=== PATIENT | male | born 1950 | race Caucasian/White ===

== ENCOUNTER 2021-04-02 08:47 | Day surgery (SDC) | payer MEDICARE, MEDICAID ==
[~2021-04-02] VITALS: Ht 172.7 cm; Wt 85.1 kg
[2021-04-02] VITALS (11 sets, daily range): BP systolic 123–197; BP diastolic 66–100
[2021-04-02] MEDS ORDERED: FLO0.4C PO (09:40)
[2021-04-02] MEDS ORDERED: CHOL500050 PO (09:40)
[2021-04-02] MEDS ORDERED: ASPI81TA50 PO (09:40)
[2021-04-02] MEDS ORDERED: diphenhydrAMINE 25mg capsule PO PRN (09:40)
[2021-04-02] MEDS ORDERED: LORazepam 0.5 MG tablet PO PRN (09:40)
[2021-04-02] MEDS ORDERED: TRIA60LO11 TOP (09:40)
[2021-04-02] MEDS ORDERED: dextrose ORAL solution 15 GM/59 ML bottle PO PRN ×2 (09:40)
[2021-04-02] MEDS ORDERED: DIPH-1055 PO (09:40)
[2021-04-02] MEDS ORDERED: MESSAGE TO PHARMACY PO ONE (09:40)
[2021-04-02] MEDS ORDERED: VILA40TA PO (09:40)
[2021-04-02] MEDS ORDERED: CLOP75TA34 PO (09:40)
[2021-04-02] MEDS ORDERED: insulin Lispro (HumaLOG) vial - multi-dose SQ SCH (09:40)
[2021-04-02] MEDS ORDERED: ALPR0.255 PO (09:40)
[2021-04-02] MEDS ORDERED: LOSA50TA64 PO (09:40)
[2021-04-02] MEDS ORDERED: AMLO-317 PO (09:40)
[2021-04-02] MEDS ORDERED: dextrose 50%-water 50ml dispensing syringe IV PRN ×2 (09:40)
[2021-04-02] MEDS ORDERED: nitroGLYCERIN 0.4mg SUBLingual tab SL PRN (09:40)
[2021-04-02] MEDS ORDERED: glucagon, human recombinant 1mg kit SUBCUT PRN (09:40)
[2021-04-02] MEDS ORDERED: normal saline 1,000 ML IV SCH (09:40)
[2021-04-02] MEDS ORDERED: DIPH25TA62 PO (09:42)
[2021-04-02] MEDS ORDERED: KEN0.1O TOP (09:42)
[2021-04-02 10:00] LABS: ALBUMIN 3.5 G/DL (3.4-5.0); ANION GAP 10 (8-16); BASOPHILS # (AUTO) 0.1 X10'3 (0-0.2); BASOPHILS % (AUTO) 1.2 % (0-1); BLOOD UREA NITROGEN 7 MG/DL (7-18); BUN/CREATININE RATIO 7.3 (5.4-32.0); CALCIUM 8.2 MG/DL (8.5-10.1); CHLORIDE 107 MMOL/L (99-107); CREATININE 0.96 MG/DL (0.60-1.10); EOSINOPHILS # (AUTO) 0.3 X10'3 (0-0.9); EOSINOPHILS % (AUTO) 3.7 % (0-6); GLUCOSE 178 MG/DL (70-104); HEMATOCRIT 37.4 % (42.0-52.0); HEMOGLOBIN 12.1 g/dl (14.0-17.9); LYMPHOCYTES # (AUTO) 1.6 X10'3 (1.1-4.8); LYMPHOCYTES % (AUTO) 22.2 % (21-51); MEAN CORPUSCULAR HEMOGLOBIN 27.5 PG (27.0-31.0); MEAN CORPUSCULAR HGB CONC 32.3 g/dL (33.0-36.5); MEAN CORPUSCULAR VOLUME 85.1 FL (78-98); MEAN PLATELET VOLUME 7.4 FL (7.4-10.4); MONOCYTES # (AUTO) 1.1 X10'3 (0-0.9); MONOCYTES % (AUTO) 15.3 % (2-12); NEUTROPHILS % (AUTO) 57.6 % (42-75); PLATELET COUNT 197 X10'3 (140-440); POTASSIUM 4.2 MMOL/L (3.5-5.1); SODIUM 140 MMOL/L (135-145); TOTAL CARBON DIOXIDE 23.1 MMOL/L (24-32); eGFR 77 ML/MIN
[2021-04-02 10:04] LABS: PARTIAL THROMBOPLASTIN TIME 24 SECONDS (22-32)
[2021-04-02 10:28] LABS: HEMOGLOBIN A1C 7.3 % (4.5-6.2)
[2021-04-02] MEDS ORDERED: iohexol 300mg/ml 100ml inj. ONE (10:41)
[2021-04-02] MEDS ORDERED: midazolam 1 mg/ML 2ml injection ONE ×2 (12:40→13:13)
[2021-04-02] MEDS ORDERED: LIDOcaine 1% (10mg/ml)w/preservative injection 20ml MDV ONE (12:40)
[2021-04-02] MEDS ORDERED: fentaNYL/PF 50MCG/1 ML 2ML syringe ONE (12:40)
[2021-04-02] MEDS ORDERED: iohexol 350MG/ML 100ml bottle IV ONE (12:41)
[2021-04-02] MEDS ORDERED: iohexol 350 MG/ML 50ML vial IV ONE ×2 (12:41→13:20)
[2021-04-02] MEDS ORDERED: nitroGLYCERIN-Tridil 50MG/D5W 250 ML IV ONE (13:09)
[2021-04-02] MEDS ORDERED: enalaprilat dihydrate 2.5mg/2ml vial IV ONE ×2 (13:10→13:11)
[2021-04-02] MEDS ORDERED: hydrALAZINE 20mg/ml inj. IV ONE (13:13)
[2021-04-02] MEDS ORDERED: HYDROcodone/acetaminophen 10/325mg tab PO PRN (14:55)
[2021-04-02] MEDS ORDERED: proCHLORperazine 10 MG/2 ml inj IV PRN (14:55)
[2021-04-02] MEDS ORDERED: OXAZEpam 15mg capsule PO PRN (14:55)
[2021-04-02] MEDS ORDERED: ondansetron/PF 4mg/2ml inj IV PRN (14:55)
[2021-04-02] MEDS ORDERED: HYDROcodone/acetaminophen 5mg/325mg tablet PO PRN (14:55)
[2021-04-02] MEDS ORDERED: insulin glargine (Lantus) pen - multi-dose SQ SCH (21:00)
== END 2021-04-02 19:50 | disposition home or self-care (01) ==
LOC: SSTAY O 08:47
PROVIDERS: ATTEND Internal Medicine Cardiovascular Disease
DX: R94.39 Abnormal result of other cardiovascular function study (principal); I25.10 Atherosclerotic heart disease of native coronary artery without angina pectoris; I10 Essential (primary) hypertension; E11.9 Type 2 diabetes mellitus without complications; N40.0 Benign prostatic hyperplasia without lower urinary tract symptoms; C34.12 Malignant neoplasm of upper lobe, left bronchus or lung; F41.9 Anxiety disorder, unspecified; F12.90 Cannabis use, unspecified, uncomplicated; F17.210 Nicotine dependence, cigarettes, uncomplicated; Z72.89 Other problems related to lifestyle; Z79.899 Other long term (current) drug therapy; Z88.0 Allergy status to penicillin; Z88.8 Allergy status to other drugs, medicaments and biological substances; Z79.01 Long term (current) use of anticoagulants
CPT/HCPCS: 70450; 71046; 80048; 82948; 83036; 85025; 85610; 85730; 93005; 93458; 99152; C1760; C1769; J0360; J1644; J2001; J2250; J3010; J7030; Q0163; Q9967; 70470; 99153; A4620; A6258; J1815; J3490

== ENCOUNTER 2021-06-30 08:50 | Outpatient (CLI) | payer MEDICARE, MEDICAID ==
[2021-06-19 12:51] LABS: BASOPHILS # (AUTO) 0.1 X10'3 (0-0.2); EOSINOPHILS # (AUTO) 0.3 X10'3 (0-0.9); EOSINOPHILS % (AUTO) 4.1 % (0-6); LYMPHOCYTES # (AUTO) 1.3 X10'3 (1.1-4.8); LYMPHOCYTES % (AUTO) 17.2 % (21-51); MEAN CORPUSCULAR HEMOGLOBIN 27.4 PG (27.0-31.0); MEAN CORPUSCULAR HGB CONC 32.6 g/dL (33.0-36.5); MEAN PLATELET VOLUME 7.9 FL (7.4-10.4); MONOCYTES # (AUTO) 1.1 X10'3 (0-0.9); MONOCYTES % (AUTO) 14.7 % (2-12); NEUTROPHILS # (AUTO) 4.7 X10'3 (1.8-7.7); PRE OP PLATELET COUNT 223 X10'3 (140-440); RED BLOOD COUNT 3.21 X10'6 (4.70-6.10); RED CELL DISTRIBUTION WIDTH 17.9 % (11.5-14.5)
[2021-06-19 12:53] LABS: PRE OP HEMOGLOBIN 8.8 g/dL (14.0-17.9)
[2021-06-19 13:02] LABS: PRE OP PROTIME 10.7 SECONDS (9.0-12.0)
[2021-06-19 13:03] LABS: ALBUMIN 3.2 G/DL (3.4-5.0); ALBUMIN/GLOBULIN RATIO 0.8 (1.1-1.5); ALKALINE PHOSPHATASE 72 IU/L (46-116); BLOOD UREA NITROGEN 12 MG/DL (7-18); BUN/CREATININE RATIO 11.4 (5.4-32.0); CALCIUM 8.5 MG/DL (8.5-10.1); CHLORIDE 110 MMOL/L (99-107); CREATININE 1.05 MG/DL (0.60-1.10); PRE OP ALT 18 U/L (30-65); PRE OP ANION GAP 10 (8-16); PRE OP AST 16 U/L (10-37); PRE OP BILIRUB, TOTAL 0.3 MG/DL (0.0-1.0); PRE OP GLUCOSE 145 MG/DL (70-104); PRE OP POTASSIUM 3.9 MMOL/L (3.4-5.1); PRE OP SODIUM 145 MMOL/L (135-145); TOTAL CARBON DIOXIDE 25.1 MMOL/L (24-32); TOTAL PROTEIN 7.3 G/DL (6.4-8.2); eGFR 69 ML/MIN
[2021-06-19 13:12] LABS: HEMOGLOBIN A1C 9.7 % (4.5-6.2)
[~2021-06-30] VITALS: Ht 172.7 cm; Wt 84.4 kg
[~2021-06-30 08:50] MED LIST: ALPR0.255 PO; AMLO-317 PO; ASPI81TA50 PO; CHOL500050 PO; DOCUMENT DATE & TIME OF BETA-BLOCKER PO ONE; FLO0.4C PO; HYDR-3686 PO; LOSA50TA64 PO; METO-395 PO; THIA100T70 PO; VILA40TA PO; albuterol 2.5 MG/3 ML nebule NEB PRN; clindamycin-Cleocin 900mg/D5W 50 ML IV ONE; famotidine 20mg tablet PO ONE; ringers solution, lacted 1,000 ML IV SCH
[2021-06-30] MEDS ORDERED: CLOP75TA34 PO (09:23)
[2021-06-30 10:00] LABS: BASOPHILS # (AUTO) 0.1 X10'3 (0-0.2); BASOPHILS % (AUTO) 1.2 % (0-1); EOSINOPHILS # (AUTO) 0.3 X10'3 (0-0.9); LYMPHOCYTES # (AUTO) 1.5 X10'3 (1.1-4.8); MEAN CORPUSCULAR HGB CONC 32.4 g/dL (33.0-36.5); MEAN CORPUSCULAR VOLUME 83.1 FL (78-98); MEAN PLATELET VOLUME 7.7 FL (7.4-10.4); MONOCYTES # (AUTO) 1.1 X10'3 (0-0.9); MONOCYTES % (AUTO) 13.9 % (2-12); NEUTROPHILS # (AUTO) 5.2 X10'3 (1.8-7.7); NEUTROPHILS % (AUTO) 62.9 % (42-75); PRE OP HEMATOCRIT 26.6 % (42.0-52.0); PRE OP PLATELET COUNT 214 X10'3 (140-440); RED CELL DISTRIBUTION WIDTH 17.5 % (11.5-14.5)
[2021-06-30 10:02] LABS: CLARITY,URINE CLEAR (Clear); COLOR,URINE YELLOW (Yellow); GLUCOSE, URINE 250 mg/dl (Neg); PROTEIN,URINE NEGATIVE (Neg); UA COLLECTION TYPE CLN CATCH MIDSTREAM
[2021-06-30 10:03] LABS: KETONES,URINE NEGATIVE (Neg); LEUKOCYTE ESTERASE ,URINE NEGATIVE (Neg); NITRITES, URINE NEGATIVE (Neg); OCCULT BLOOD,URINE NEGATIVE (Neg); UROBILINOGEN,URINE 0.2 E.U/dL (0.2-1.0)
[2021-06-30 10:11] LABS: ALBUMIN 3.1 G/DL (3.4-5.0); ALBUMIN/GLOBULIN RATIO 0.8 (1.1-1.5); ALKALINE PHOSPHATASE 73 IU/L (46-116); BLOOD UREA NITROGEN 10 MG/DL (7-18); CALCIUM 8.6 MG/DL (8.5-10.1); CHLORIDE 109 MMOL/L (99-107); PRE OP ALT 14 U/L (30-65); PRE OP ANION GAP 9 (8-16); PRE OP AST 12 U/L (10-37); PRE OP BILIRUB, TOTAL 0.3 MG/DL (0.0-1.0); PRE OP POTASSIUM 3.9 MMOL/L (3.4-5.1); PRE OP SODIUM 144 MMOL/L (135-145); TOTAL CARBON DIOXIDE 26.5 MMOL/L (24-32); TOTAL PROTEIN 7.2 G/DL (6.4-8.2); eGFR 73 ML/MIN
[2021-06-30 10:12] LABS: PRE OP HEMOGLOBIN 8.6 g/dL (14.0-17.9)
[2021-06-30 10:20] LABS: PRE OP GLUCOSE 208 MG/DL (70-104)
[2021-07-03] MEDS ORDERED: ringers solution, lacted 1,000 ML IV SCH (05:00)
[2021-07-03] MEDS ORDERED: clindamycin-Cleocin 900mg/D5W 50 ML IV ONE (05:30)
[2021-07-03] MEDS ORDERED: famotidine 20mg tablet PO ONE (05:30)
[2021-07-03] MEDS ORDERED: albuterol 2.5 MG/3 ML nebule NEB ONE (05:30)
[2021-07-03] MEDS ORDERED: DOCUMENT DATE & TIME OF BETA-BLOCKER PO ONE (05:30)
[2021-07-14] MEDS ORDERED: DIPH-1055 PO (10:10)
[2021-07-14] MEDS ORDERED: LINA5TAB4 PO (10:11)
[2021-07-14] MEDS ORDERED: GLIP10TA11 PO (10:15)
[2021-07-30] MEDS ORDERED: ALBU8HFA PO (13:13)
[2021-07-30] MEDS ORDERED: GABA-530 PO (13:13)
[2021-07-30] MEDS ORDERED: PANT40TA54 PO (13:13)
[2021-07-30] MEDS ORDERED: FURO-150 PO (13:13)
[2021-07-30] MEDS ORDERED: LACT1CAP26 PO (13:13)
[2021-07-30] MEDS ORDERED: METF-1203 PO (13:13)
== END 2021-06-30 23:59 | disposition home or self-care (01) ==
LOC: PRE-OP 08:50 → EDSTATUS 07-03 12:15
PROVIDERS: ATTEND Surgery
DX: Z01.812 Encounter for preprocedural laboratory examination (principal); U07.1 COVID-19; M25.78 Osteophyte, vertebrae
CPT/HCPCS: 36415; 71046; 80053; 81003; 83036; 85025; 85610; 85730; 86885; 86900; 86901; 87081; U0003; U0005; J3490; J7120

== ENCOUNTER 2021-11-05 12:12 | Emergency (ER) | payer MEDICARE, MEDICAID ==
[~2021-11-05] VITALS: Ht 172.7 cm; Wt 80.0 kg
[~2021-11-05 12:12] MED LIST changes: +CLOP75TA34 PO; +DIPH-1055 PO; -DOCUMENT DATE & TIME OF BETA-BLOCKER PO ONE; +FURO-150 PO; +GABA-530 PO; +LACT1CAP26 PO; +LINA5TAB4 PO; +PANT40TA54 PO; -albuterol 2.5 MG/3 ML nebule NEB PRN; -clindamycin-Cleocin 900mg/D5W 50 ML IV ONE; -famotidine 20mg tablet PO ONE; -ringers solution, lacted 1,000 ML IV SCH
[2021-11-05 12:35] VITALS: BP 128/55
[2021-11-05] MEDS ORDERED: HYDR-3972 PO (14:28)
== END 2021-11-05 14:49 | disposition home or self-care (01) ==
LOC: ER 12:13
DX: R07.89 Other chest pain (principal); I25.10 Atherosclerotic heart disease of native coronary artery without angina pectoris; F17.200 Nicotine dependence, unspecified, uncomplicated; Z98.890 Other specified postprocedural states; Z85.118 Personal history of other malignant neoplasm of bronchus and lung; Z88.0 Allergy status to penicillin; Z79.82 Long term (current) use of aspirin; Z79.899 Other long term (current) drug therapy
CPT/HCPCS: 71045; 99283

== ENCOUNTER 2021-11-16 14:46 | Inpatient (IN) | payer MEDICARE, MEDICAID ==
[~2021-11-16] VITALS: Ht 172.7 cm; Wt 80.9 kg
[~2021-11-16 14:46] MED LIST changes: +HYDR-3972 PO
--- NOTE | 2021-11-16 15:28 | NUR ---
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
[2021-11-16 15:53] LABS: ALANINE AMINOTRANSFERASE 17 U/L (12-78); ALBUMIN 3.4 G/DL (3.4-5.0); ALBUMIN/GLOBULIN RATIO 0.7 (1.1-1.5); ALKALINE PHOSPHATASE 115 IU/L (46-116); ANION GAP 11 (8-16); ASPARTATE AMINO TRANSFERASE 15 U/L (10-37); BILIRUBIN,TOTAL 0.4 MG/DL (0.1-1.0); BLOOD UREA NITROGEN 15 MG/DL (7-18); BUN/CREATININE RATIO 13.2 (5.4-32.0); CALCIUM 9.1 MG/DL (8.5-10.1); CHLORIDE 108 MMOL/L (99-107); CREATININE 1.14 MG/DL (0.60-1.10); GLUCOSE 137 MG/DL (70-104); POTASSIUM 4.5 MMOL/L (3.5-5.1); SODIUM 142 MMOL/L (135-145); TOTAL CARBON DIOXIDE 23.1 MMOL/L (24-32); TOTAL PROTEIN 8.3 G/DL (6.4-8.2); eGFR 63 ML/MIN
[2021-11-16 15:54] LABS: BASOPHILS # (AUTO) 0.1 X10'3 (0-0.2); BASOPHILS % (AUTO) 0.6 % (0-1); EOSINOPHILS % (AUTO) 0.1 % (0-6); HEMATOCRIT 22.2 % (42.0-52.0); HEMOGLOBIN 7.1 g/dl (14.0-17.9); LYMPHOCYTES # (AUTO) 0.9 X10'3 (1.1-4.8); LYMPHOCYTES % (AUTO) 7.4 % (21-51); MEAN CORPUSCULAR HEMOGLOBIN 24.9 PG (27.0-31.0); MEAN CORPUSCULAR HGB CONC 31.9 g/dL (33.0-36.5); MEAN CORPUSCULAR VOLUME 77.8 FL (78-98); MEAN PLATELET VOLUME 7.3 FL (7.4-10.4); MONOCYTES # (AUTO) 1.2 X10'3 (0-0.9); MONOCYTES % (AUTO) 9.4 % (2-12); NEUTROPHILS # (AUTO) 10.2 X10'3 (1.8-7.7); NEUTROPHILS % (AUTO) 82.5 % (42-75); PLATELET COUNT 295 X10'3 (140-440); RED BLOOD COUNT 2.85 X10'6 (4.70-6.10); RED CELL DISTRIBUTION WIDTH 18.3 % (11.5-14.5); WHITE BLOOD COUNT 12.4 X10'3 (4.5-11.0)
[2021-11-16] MEDS ORDERED: iohexol 350MG/ML 100ml bottle IV ONE (16:15)
[2021-11-16] MEDS ORDERED: heparin 10,000 units/1 ML INJ IV PRN ×2 (16:55→18:05)
[2021-11-16] MEDS ORDERED: furosemide 10 MG/1 ML 10ml inj IV ONE (16:55)
[2021-11-16] MEDS ORDERED: heparin 10,000 units/1 ML INJ IV ONE (16:55)
[2021-11-16] MEDS ORDERED: LORazepam 2 mg/ml vial IV ONE (17:10)
[2021-11-16 17:34] LABS: C-REACTIVE PROTEIN 5.46 MG/DL (0.0-0.5)
[2021-11-16] MEDS: heparin 25,000 UNIT/250ml bag 250 ML IV SCH (17:37)
[2021-11-16] MEDS ORDERED: potassium CL 10mEq/100ml bag 100 ML IV PRN (18:05)
[2021-11-16] MEDS ORDERED: morphine 2 MG/ML inj. syringe IV PRN (18:05)
[2021-11-16] MEDS ORDERED: dextrose 50%-water 50ml dispensing syringe IV PRN ×2 (18:05)
[2021-11-16] MEDS ORDERED: MESSAGE TO PHARMACY PO ONE (18:05)
[2021-11-16] MEDS ORDERED: ondansetron/PF 4mg/2ml inj IV PRN (18:05)
[2021-11-16] MEDS ORDERED: acetaminophen 325mg tablet PO PRN ×2 (18:05)
[2021-11-16] MEDS ORDERED: magnesium 2GM in 50ml NS 50 ML IV PRN (18:05)
[2021-11-16] MEDS ORDERED: insulin Lispro (HumaLOG) vial - multi-dose SQ SCH (18:05)
[2021-11-16] MEDS ORDERED: potassium Cl 20 mEq SR tablet PO PRN ×2 (18:05)
[2021-11-16] MEDS ORDERED: magnesium Cl slow-release 64mg tablet PO PRN (18:05)
[2021-11-16] MEDS ORDERED: glucagon, human recombinant 1mg kit SUBCUT PRN (18:05)
[2021-11-16] MEDS ORDERED: magnesium 4gm in 100ml NS 100 ML IV PRN (18:05)
[2021-11-16] MEDS ORDERED: DEXTROSE 15 GM of carb/4 tabs (each vial/BOTTLE has 4 tablets) PO PRN ×2 (18:05)
[2021-11-16] MEDS ORDERED: heparin 25,000 UNIT/250ml bag 250 ML IV SCH (18:05)
[2021-11-16] MEDS: nicotine 14mg patch - 24hr TD SCH (18:15)
[2021-11-16 18:48] LABS: HEMOGLOBIN A1C 6.6 % (4.5-6.2)
[2021-11-16] MEDS ORDERED: IPRA3AMP31 IH (19:24)
[2021-11-16] MEDS ORDERED: ALBU8.5H17 IH (19:24)
[2021-11-16] MEDS ORDERED: METF-436 PO (19:24)
[2021-11-16] MEDS ORDERED: GABA300C PO (19:24)
[2021-11-16] MEDS ORDERED: HYDR-3972 PO (19:27)
[2021-11-16] MEDS ORDERED: FURO-150 PO (19:27)
[2021-11-16] MEDS ORDERED: SUCR1TAB PO (19:57)
[2021-11-16] MEDS ORDERED: FLUT1DIS20 INH (19:57)
[2021-11-16] MEDS ORDERED: METO-539 PO (19:57)
[2021-11-16] MEDS ORDERED: LACT1CAP65 PO (19:57)
[2021-11-16] MEDS ORDERED: PANT-47 PO (19:57)
[2021-11-16] MEDS ORDERED: albuterol 2.5 MG/3 ML nebule NEB SCH (20:00)
[2021-11-16] MEDS: K and/or MAG REPLACEMENT MC SCH (20:00)
[2021-11-16 20:40] VITALS: BP 122/65
[2021-11-16] MEDS: insulin glargine (Lantus) pen - multi-dose SQ SCH (21:00)
--- NOTE | 2021-11-16 21:26 | NUR ---
RESPIRATORY PAGED FOR BREATHING TREATMENT.
[2021-11-16] MEDS: furosemide 40mg/4ml inj IV SCH (21:30)
[2021-11-16] MEDS: methylPREDNISolone sod succ 125mg/2ml vial IV SCH (21:31)
[2021-11-16] MEDS: HYDROcodone/acetaminophen 5mg/325mg tablet PO PRN (21:33)
[2021-11-16] MEDS ORDERED: albuterol 60 PUFF/8GM Inhaler IH PRN (21:50)
[2021-11-16 22:00] VITALS: BP 118/56
[2021-11-16] MEDS: albuterol 60 PUFF/8GM Inhaler IH SCH ×3 (22:02→23:40)
[2021-11-17 02:00] VITALS: BP 104/50
[2021-11-17] MEDS: albuterol 60 PUFF/8GM Inhaler IH SCH ×6 (03:39→23:35)
--- NOTE | 2021-11-17 06:44 | NUR ---
Problems reprioritized. Patient report given, questions answered & plan of care reviewed with CHARLENE WAGNER.
[2021-11-17 07:16] LABS: BASOPHILS % (AUTO) 0.2 % (0-1); EOSINOPHILS % (AUTO) 0 % (0-6); LYMPHOCYTES # (AUTO) 0.7 X10'3 (1.1-4.8); LYMPHOCYTES % (AUTO) 7.4 % (21-51); MEAN CORPUSCULAR HEMOGLOBIN 25.6 PG (27.0-31.0); MEAN CORPUSCULAR HGB CONC 32.4 g/dL (33.0-36.5); MEAN CORPUSCULAR VOLUME 78.9 FL (78-98); MEAN PLATELET VOLUME 7.5 FL (7.4-10.4); MONOCYTES # (AUTO) 0.2 X10'3 (0-0.9); MONOCYTES % (AUTO) 2.4 % (2-12); NEUTROPHILS # (AUTO) 8.8 X10'3 (1.8-7.7); PLATELET COUNT 274 X10'3 (140-440); RED CELL DISTRIBUTION WIDTH 18.6 % (11.5-14.5); WHITE BLOOD COUNT 9.8 X10'3 (4.5-11.0)
[2021-11-17 07:19] LABS: HEMATOCRIT 21.3 % (42.0-52.0); HEMOGLOBIN 6.9 g/dl (14.0-17.9)
--- NOTE | 2021-11-17 07:19 | NUR ---
critical result reported to primary RN
--- NOTE | 2021-11-17 07:23 | NUR ---
Page Sent to Dr. Mahajan regarding H&H promotional table spacer PAGER ID: [phone] MESSAGE: [phone]. Critical Hgb 6.9 Hct 21.3. Yesterday H&H 7.1 & 22.2. Kristen/ Faye [id number]
[2021-11-17 07:30] VITALS: BP 119/61
[2021-11-17 07:43] LABS: ALANINE AMINOTRANSFERASE 15 U/L (12-78); ALBUMIN/GLOBULIN RATIO 0.7 (1.1-1.5); ALKALINE PHOSPHATASE 99 IU/L (46-116); ANION GAP 12 (8-16); ASPARTATE AMINO TRANSFERASE 16 U/L (10-37); BILIRUBIN,TOTAL 0.3 MG/DL (0.1-1.0); BLOOD UREA NITROGEN 17 MG/DL (7-18); BUN/CREATININE RATIO 16.7 (5.4-32.0); CALCIUM 8.8 MG/DL (8.5-10.1); CHLORIDE 107 MMOL/L (99-107); CHOL/HDL RATIO 3.4 (0.00-4.99); CHOLESTEROL 154 MG/DL (0-200); CREATININE 1.02 MG/DL (0.60-1.10); GLUCOSE 167 MG/DL (70-104); HDL CHOLESTEROL 45 MG/DL (35-60); LDL CHOLESTEROL 92 MG/DL (50-100); POTASSIUM 3.8 MMOL/L (3.5-5.1); SODIUM 142 MMOL/L (135-145); TOTAL CARBON DIOXIDE 23.5 MMOL/L (24-32); TOTAL PROTEIN 7.5 G/DL (6.4-8.2); TRIGLYCERIDES 57 MG/DL (20-135); eGFR 72 ML/MIN
[2021-11-17] MEDS: levoFLOXACIN 500mg tablet PO SCH (08:26)
[2021-11-17] MEDS: methylPREDNISolone sod succ 125mg/2ml vial IV SCH ×2 (08:26→19:44)
[2021-11-17] MEDS: furosemide 40mg/4ml inj IV SCH ×2 (08:26→19:43)
[2021-11-17] MEDS: nicotine 14mg patch - 24hr TD SCH (08:26)
[2021-11-17] MEDS: azithromycin/NS 500mg/250ml 250 ML IV SCH (08:27)
[2021-11-17 08:36] LABS: ANISOCYTOSIS 2+; MICROCYTOSIS 1+; PLATELET ESTIMATE NORMAL
[2021-11-17 11:00] VITALS: BP 109/52
[2021-11-17 11:59] LABS: OCCULT BLOOD STOOL NEGATIVE (Neg)
[2021-11-17] MEDS: heparin 25,000 UNIT/250ml bag 250 ML IV SCH (15:00)
[2021-11-17 15:22] VITALS: BP 127/60
[2021-11-17 15:31] LABS: HEMOGLOBIN 7.1 g/dl (14.0-17.9); MEAN CORPUSCULAR HEMOGLOBIN 25.2 PG (27.0-31.0); MEAN CORPUSCULAR HGB CONC 32.2 g/dL (33.0-36.5); MEAN CORPUSCULAR VOLUME 78.5 FL (78-98); MEAN PLATELET VOLUME 7.5 FL (7.4-10.4); PLATELET COUNT 279 X10'3 (140-440); RED CELL DISTRIBUTION WIDTH 18.4 % (11.5-14.5); WHITE BLOOD COUNT 10.8 X10'3 (4.5-11.0)
--- NOTE | 2021-11-17 15:42 | NUR ---
RECEIVED CRITICAL LAB BY HALLE (LAB). HCT 22, HBG. 7.1, PRIMARY RN, KRISTY NOTIFIED
[2021-11-17 18:00] VITALS: BP 127/61
--- NOTE | 2021-11-17 18:30 | NUR ---
Night Charge nurse made aware of Dr. Mahajan's order to continue heparin order at 1500units/hr.
[2021-11-17] MEDS: K and/or MAG REPLACEMENT MC SCH (19:40)
[2021-11-17] MEDS: insulin glargine (Lantus) pen - multi-dose SQ SCH (21:00)
[2021-11-17 21:16] VITALS: BP 107/51
[2021-11-18] VITALS (14 sets, daily range): BP systolic 114–134; BP diastolic 53–68
[2021-11-18] MEDS: heparin 25,000 UNIT/250ml bag 250 ML IV SCH (02:15)
[2021-11-18 03:06] LABS: BASOPHILS % (AUTO) 0.1 % (0-1); EOSINOPHILS % (AUTO) 0 % (0-6); LYMPHOCYTES # (AUTO) 0.6 X10'3 (1.1-4.8); LYMPHOCYTES % (AUTO) 4.3 % (21-51); MEAN CORPUSCULAR HEMOGLOBIN 24.6 PG (27.0-31.0); MEAN CORPUSCULAR HGB CONC 31.6 g/dL (33.0-36.5); MEAN CORPUSCULAR VOLUME 77.9 FL (78-98); MEAN PLATELET VOLUME 7.3 FL (7.4-10.4); MONOCYTES # (AUTO) 0.9 X10'3 (0-0.9); MONOCYTES % (AUTO) 5.8 % (2-12); NEUTROPHILS # (AUTO) 13.4 X10'3 (1.8-7.7); NEUTROPHILS % (AUTO) 89.8 % (42-75); PLATELET COUNT 297 X10'3 (140-440); RED BLOOD COUNT 2.68 X10'6 (4.70-6.10); RED CELL DISTRIBUTION WIDTH 18.3 % (11.5-14.5); WHITE BLOOD COUNT 14.9 X10'3 (4.5-11.0)
--- NOTE | 2021-11-18 03:15 | NUR ---
Critical lab called to Dr. Amador. Order for type & screen and informed consent.
[2021-11-18 03:18] LABS: HEMATOCRIT 20.9 % (42.0-52.0); HEMOGLOBIN 6.6 g/dl (14.0-17.9)
[2021-11-18 03:21] LABS: ALANINE AMINOTRANSFERASE 19 U/L (12-78); ALBUMIN 3.1 G/DL (3.4-5.0); ALBUMIN/GLOBULIN RATIO 0.7 (1.1-1.5); ALKALINE PHOSPHATASE 96 IU/L (46-116); ANION GAP 13 (8-16); ASPARTATE AMINO TRANSFERASE 18 U/L (10-37); BILIRUBIN,TOTAL 0.3 MG/DL (0.1-1.0); BLOOD UREA NITROGEN 25 MG/DL (7-18); BUN/CREATININE RATIO 22.5 (5.4-32.0); CALCIUM 8.9 MG/DL (8.5-10.1); CHLORIDE 105 MMOL/L (99-107); CREATININE 1.11 MG/DL (0.60-1.10); GLUCOSE 154 MG/DL (70-104); POTASSIUM 3.5 MMOL/L (3.5-5.1); SODIUM 140 MMOL/L (135-145); TOTAL PROTEIN 7.4 G/DL (6.4-8.2); eGFR 65 ML/MIN
[2021-11-18] MEDS: albuterol 60 PUFF/8GM Inhaler IH SCH ×6 (03:41→23:19)
--- NOTE | 2021-11-18 04:25 | NUR ---
Patient verbalizes understanding of blood transfusion. Teaching and Handout about blood transfusion was given to patient. transfusion consent obtained from patient. Consent taken to MD's office for signature. Discuss about patient with MD. MD verbalizes the need for transfusion. No order for PRBC in place.
--- NOTE | 2021-11-18 07:12 | NUR ---
Page sent: PAGER ID: [phone] MESSAGE: [id number]. Angel Thacker. Patient has had a hgb of 6.6 hct 20.9. night RN notified Overnight already. T+C and consent has been signed but no other for transfusion. please adv.
[2021-11-18] MEDS: K and/or MAG REPLACEMENT MC SCH ×2 (08:00→19:31)
[2021-11-18] MEDS: azithromycin/NS 500mg/250ml 250 ML IV SCH (09:21)
[2021-11-18] MEDS: levoFLOXACIN 500mg tablet PO SCH (09:22)
[2021-11-18] MEDS: furosemide 40mg/4ml inj IV SCH ×2 (09:22→19:30)
[2021-11-18] MEDS: methylPREDNISolone sod succ 125mg/2ml vial IV SCH ×2 (09:22→09:35)
[2021-11-18] MEDS: nicotine 14mg patch - 24hr TD SCH (09:22)
[2021-11-18 16:33] LABS: HEMATOCRIT 29.9 % (42.0-52.0); HEMOGLOBIN 9.7 g/dl (14.0-17.9); MEAN CORPUSCULAR HEMOGLOBIN 25.4 PG (27.0-31.0); MEAN CORPUSCULAR HGB CONC 32.4 g/dL (33.0-36.5); MEAN CORPUSCULAR VOLUME 78.4 FL (78-98); MEAN PLATELET VOLUME 7.4 FL (7.4-10.4); PLATELET COUNT 328 X10'3 (140-440); RED BLOOD COUNT 3.81 X10'6 (4.70-6.10); RED CELL DISTRIBUTION WIDTH 17.9 % (11.5-14.5); WHITE BLOOD COUNT 14.3 X10'3 (4.5-11.0)
[2021-11-18] MEDS: apixaban 2.5mg tablet PO SCH (19:30)
[2021-11-18] MEDS: HYDROcodone/acetaminophen 5mg/325mg tablet PO PRN (19:42)
[2021-11-18] MEDS ORDERED: heparin, porcine 5000 units/ml vial SQ SCH (20:00)
[2021-11-18] MEDS: insulin glargine (Lantus) pen - multi-dose SQ SCH (21:00)
[2021-11-19 02:00] VITALS: BP 124/68
[2021-11-19] MEDS: albuterol 60 PUFF/8GM Inhaler IH SCH ×3 (04:00→12:00)
[2021-11-19 05:55] LABS: BASOPHILS % (AUTO) 0 % (0-1); EOSINOPHILS % (AUTO) 0 % (0-6); HEMATOCRIT 28.2 % (42.0-52.0); HEMOGLOBIN 9.1 g/dl (14.0-17.9); LYMPHOCYTES # (AUTO) 0.9 X10'3 (1.1-4.8); LYMPHOCYTES % (AUTO) 6.5 % (21-51); MEAN CORPUSCULAR HEMOGLOBIN 25.1 PG (27.0-31.0); MEAN CORPUSCULAR HGB CONC 32.2 g/dL (33.0-36.5); MEAN PLATELET VOLUME 7.1 FL (7.4-10.4); MONOCYTES # (AUTO) 1.6 X10'3 (0-0.9); MONOCYTES % (AUTO) 11.4 % (2-12); NEUTROPHILS # (AUTO) 11.8 X10'3 (1.8-7.7); NEUTROPHILS % (AUTO) 82.1 % (42-75); PLATELET COUNT 277 X10'3 (140-440); RED BLOOD COUNT 3.62 X10'6 (4.70-6.10); RED CELL DISTRIBUTION WIDTH 18.2 % (11.5-14.5); WHITE BLOOD COUNT 14.4 X10'3 (4.5-11.0)
[2021-11-19 06:00] VITALS: BP 133/64
[2021-11-19 06:16] LABS: ALANINE AMINOTRANSFERASE 21 U/L (12-78); ALBUMIN/GLOBULIN RATIO 0.7 (1.1-1.5); ALKALINE PHOSPHATASE 87 IU/L (46-116); ANION GAP 12 (8-16); ASPARTATE AMINO TRANSFERASE 17 U/L (10-37); BILIRUBIN,TOTAL 0.5 MG/DL (0.1-1.0); BLOOD UREA NITROGEN 25 MG/DL (7-18); BUN/CREATININE RATIO 32.5 (5.4-32.0); CALCIUM 8.8 MG/DL (8.5-10.1); CHLORIDE 107 MMOL/L (99-107); CREATININE 0.77 MG/DL (0.60-1.10); GLUCOSE 130 MG/DL (70-104); POTASSIUM 3.1 MMOL/L (3.5-5.1); SODIUM 144 MMOL/L (135-145); TOTAL CARBON DIOXIDE 24.8 MMOL/L (24-32); TOTAL PROTEIN 7.1 G/DL (6.4-8.2); eGFR > 90 ML/MIN
[2021-11-19] MEDS: nicotine 14mg patch - 24hr TD SCH (09:05)
[2021-11-19] MEDS: azithromycin/NS 500mg/250ml 250 ML IV SCH (09:06)
[2021-11-19] MEDS: levoFLOXACIN 500mg tablet PO SCH (09:06)
[2021-11-19] MEDS: apixaban 2.5mg tablet PO SCH (09:06)
[2021-11-19] MEDS: furosemide 40mg/4ml inj IV SCH (09:07)
[2021-11-19] MEDS: methylPREDNISolone sod succ 125mg/2ml vial IV SCH (09:07)
[2021-11-19] MEDS ORDERED: APIX5TAB3 PO ×2 (12:28)
== END 2021-11-19 14:31 | disposition home or self-care (01) | DRG 871 ==
LOC: ER 14:46 → ED HOLD 18:12 → PCU 3S 20:37
PROVIDERS: ADMIT Internal Medicine; ATTEND Internal Medicine
PROC: B32T1ZZ Computerized Tomography (CT Scan) of Left Pulmonary Artery using Low Osmolar Contrast (ICD-10-PCS; 2021-11-16)
PROC: B3201ZZ Computerized Tomography (CT Scan) of Thoracic Aorta using Low Osmolar Contrast (ICD-10-PCS; 2021-11-16)
PROC: B32S1ZZ Computerized Tomography (CT Scan) of Right Pulmonary Artery using Low Osmolar Contrast (ICD-10-PCS; 2021-11-16)
PROC: 5A09357 Assistance with Respiratory Ventilation, Less than 24 Consecutive Hours, Continuous Positive Airway Pressure (ICD-10-PCS; principal; 2021-11-17)
PROC: 30233N1 Transfusion of Nonautologous Red Blood Cells into Peripheral Vein, Percutaneous Approach (ICD-10-PCS; 2021-11-18)
DX: A41.9 Sepsis, unspecified organism (principal); U07.1 COVID-19; J12.82 Pneumonia due to coronavirus disease 2019; I50.21 Acute systolic (congestive) heart failure; I26.99 Other pulmonary embolism without acute cor pulmonale; I13.0 Hypertensive heart and chronic kidney disease with heart failure and stage 1 through stage 4 chronic kidney disease, or unspecified chronic kidney disease; N18.30 Chronic kidney disease, stage 3 unspecified; D64.9 Anemia, unspecified; E11.22 Type 2 diabetes mellitus with diabetic chronic kidney disease; E11.65 Type 2 diabetes mellitus with hyperglycemia; F12.90 Cannabis use, unspecified, uncomplicated; F17.210 Nicotine dependence, cigarettes, uncomplicated; I25.10 Atherosclerotic heart disease of native coronary artery without angina pectoris; Z85.118 Personal history of other malignant neoplasm of bronchus and lung; Z90.2 Acquired absence of lung [part of]; Z88.0 Allergy status to penicillin; Z71.6 Tobacco abuse counseling
CPT/HCPCS: 36415; 36430; 70450; 71045; 71275; 80053; 80061; 82272; 82948; 83036; 83605; 83880; 84145; 84484; 85008; 85025; 85027; 85730; 86140; 86885; 86900; 86901; 86920; 87040; 87081; 87635; 93005; 93306; 94640; 94760; 97110; 97161; 97530; 99285; C9803; G0378; J0456; J1644; J1815; J1940; J2060; J2930; P9016; Q9967

== ENCOUNTER 2021-12-13 09:42 | Inpatient (IN) | payer MEDICARE, MEDICAID ==
[~2021-12-13] VITALS: Ht 172.7 cm; Wt 84.9 kg
[~2021-12-13 09:42] MED LIST changes: +ALBU8.5H17 IH; +APIX5TAB3 PO; -DIPH-1055 PO; -GABA-530 PO; +GABA300C PO; +IPRA3AMP31 IH; -LACT1CAP26 PO; +LACT1CAP65 PO; -LINA5TAB4 PO; -LOSA50TA64 PO; +METF-436 PO; -METO-395 PO; +PANT-47 PO; -PANT40TA54 PO; +SUCR1TAB PO
[2021-12-13 11:02] LABS: BASOPHILS # (AUTO) 0.1 X10'3 (0-0.2); BASOPHILS % (AUTO) 1.1 % (0-1); EOSINOPHILS # (AUTO) 0.1 X10'3 (0-0.9); LYMPHOCYTES # (AUTO) 0.7 X10'3 (1.1-4.8); LYMPHOCYTES % (AUTO) 7.8 % (21-51); MEAN CORPUSCULAR HEMOGLOBIN 26.7 PG (27.0-31.0); MEAN CORPUSCULAR VOLUME 83.5 FL (78-98); MEAN PLATELET VOLUME 6.3 FL (7.4-10.4); MONOCYTES # (AUTO) 0.8 X10'3 (0-0.9); MONOCYTES % (AUTO) 8.5 % (2-12); NEUTROPHILS # (AUTO) 7.7 X10'3 (1.8-7.7); NEUTROPHILS % (AUTO) 81.6 % (42-75); PLATELET COUNT 313 X10'3 (140-440); RED BLOOD COUNT 2.53 X10'6 (4.70-6.10); RED CELL DISTRIBUTION WIDTH 19.9 % (11.5-14.5); WHITE BLOOD COUNT 9.5 X10'3 (4.5-11.0)
[2021-12-13 11:04] LABS: HEMATOCRIT 21.1 % (42.0-52.0); HEMOGLOBIN 6.8 g/dl (14.0-17.9)
--- NOTE | 2021-12-13 11:09 | NUR ---
PT IN THE ROOM AWAKE, NO REPORTED DISCOMFORT.
[2021-12-13 11:15] LABS: D-DIMER 2.33 MG/L FEU (0-0.50)
[2021-12-13 11:17] LABS: ALANINE AMINOTRANSFERASE 20 U/L (12-78); ALBUMIN 3.2 G/DL (3.4-5.0); ALBUMIN/GLOBULIN RATIO 0.8 (1.1-1.5); ALKALINE PHOSPHATASE 94 IU/L (46-116); ANION GAP 13 (8-16); ASPARTATE AMINO TRANSFERASE 13 U/L (10-37); BILIRUBIN,TOTAL 0.3 MG/DL (0.1-1.0); BLOOD UREA NITROGEN 7 MG/DL (7-18); BUN/CREATININE RATIO 6.9 (5.4-32.0); CALCIUM 8.8 MG/DL (8.5-10.1); CHLORIDE 107 MMOL/L (99-107); CREATININE 1.01 MG/DL (0.60-1.10); GLUCOSE 174 MG/DL (70-104); POTASSIUM 4.3 MMOL/L (3.5-5.1); SODIUM 142 MMOL/L (135-145); TOTAL CARBON DIOXIDE 22.4 MMOL/L (24-32); TOTAL PROTEIN 7.1 G/DL (6.4-8.2); eGFR 72 ML/MIN
[2021-12-13 11:26] LABS: MAGNESIUM 2.2 MG/DL (1.5-2.4)
[2021-12-13 11:30] LABS: ANISOCYTOSIS 2+; MICROCYTOSIS 1+; PLATELET ESTIMATE NORMAL
[2021-12-13 11:31] LABS: POLYCHROMASIA FEW; SCHISTOCYTES FEW; TEAR DROP CELLS FEW
[2021-12-13] MEDS ORDERED: iohexol 350MG/ML 100ml bottle IV ONE (11:39)
[2021-12-13] MEDS ORDERED: naloxone 0.4 mg/ml inj IV PRN (11:55)
[2021-12-13] MEDS ORDERED: glucagon, human recombinant 1mg kit SUBCUT PRN (11:55)
[2021-12-13] MEDS ORDERED: ondansetron/PF 4mg/2ml inj IV PRN (11:55)
[2021-12-13] MEDS ORDERED: DEXTROSE 15 GM of carb/4 tabs (each vial/BOTTLE has 4 tablets) PO PRN ×2 (11:55)
[2021-12-13] MEDS ORDERED: magnesium hydroxide 30ml (MOM) UD suspension PO PRN (11:55)
[2021-12-13] MEDS ORDERED: HYDROcodone/acetaminophen 5mg/325mg tablet PO PRN (11:55)
[2021-12-13] MEDS ORDERED: acetaminophen 325mg tablet PO PRN ×2 (11:55)
[2021-12-13] MEDS ORDERED: insulin Lispro (HumaLOG) vial - multi-dose SQ SCH (11:55)
[2021-12-13] MEDS ORDERED: dextrose 50%-water 50ml dispensing syringe IV PRN ×2 (11:55)
[2021-12-13] MEDS: MESSAGE TO NURSING PO NR (11:55)
[2021-12-13] MEDS ORDERED: mag hydrox/Alum hydrox/simeth 30ml oral suspension PO PRN (11:55)
[2021-12-13] MEDS ORDERED: MESSAGE TO PHARMACY PO ONE (11:55)
[2021-12-13] MEDS ORDERED: morphine 2 MG/ML inj. syringe IV PRN ×2 (11:55)
[2021-12-13 13:20] VITALS: BP 139/68
[2021-12-13 13:35] VITALS: BP 138/64
[2021-12-13 13:49] LABS: OCCULT BLOOD STOOL POSITIVE (Neg)
[2021-12-13] MEDS ORDERED: hydrOXYzine 25 MG tablet PO PRN (13:55)
[2021-12-13] MEDS ORDERED: albuterol 2.5 MG/3 ML nebule NEB PRN (14:05)
[2021-12-13] MEDS: sucralfate 1 gm tablet PO SCH ×2 (14:26→22:00)
[2021-12-13 15:05] VITALS: BP 138/69
[2021-12-13 17:44] LABS: HEMATOCRIT 23.8 % (42.0-52.0); HEMOGLOBIN 7.8 g/dl (14.0-17.9); MEAN CORPUSCULAR HEMOGLOBIN 27.5 PG (27.0-31.0); MEAN CORPUSCULAR HGB CONC 32.9 g/dL (33.0-36.5); MEAN CORPUSCULAR VOLUME 83.6 FL (78-98); MEAN PLATELET VOLUME 6.7 FL (7.4-10.4); PLATELET COUNT 304 X10'3 (140-440); RED BLOOD COUNT 2.85 X10'6 (4.70-6.10); RED CELL DISTRIBUTION WIDTH 19.3 % (11.5-14.5); WHITE BLOOD COUNT 8.5 X10'3 (4.5-11.0)
[2021-12-13] MEDS: ALPRAZolam 0.25mg tablet PO PRN (19:35)
[2021-12-13 21:33] VITALS: BP 144/71
[2021-12-13 22:00] VITALS: BP 150/63
[2021-12-13] MEDS: insulin glargine (Lantus) pen - multi-dose SQ SCH (22:00)
[2021-12-13] MEDS: gabapentin 300mg capsule PO SCH (22:43)
[2021-12-13] MEDS: amLODIPine 5mg tablet PO SCH (22:44)
[2021-12-13] MEDS: docusate sod 100mg capsule PO SCH (22:44)
[2021-12-13] MEDS: pantoprazole 40MG/NS 100ML BAG 100 ML IV SCH (23:41)
[2021-12-14] VITALS (14 sets, daily range): BP systolic 112–140; BP diastolic 52–78
[2021-12-14] MEDS: ALPRAZolam 0.25mg tablet PO PRN (00:06)
[2021-12-14] MEDS: sucralfate 1 gm tablet PO SCH ×5 (02:18→22:21)
--- NOTE | 2021-12-14 05:51 | NUR ---
Pt complaining of SOB with ambulation to RR. sats at 91% on RA. Lung sounds wheezing inspiratory and expiratory. P;aced on 1 L o2, message to RT for nebulizer tx.
[2021-12-14 07:48] LABS: BASOPHILS # (AUTO) 0.1 X10'3 (0-0.2); BASOPHILS % (AUTO) 1.1 % (0-1); EOSINOPHILS # (AUTO) 0.2 X10'3 (0-0.9); EOSINOPHILS % (AUTO) 1.9 % (0-6); HEMATOCRIT 24.7 % (42.0-52.0); HEMOGLOBIN 7.8 g/dl (14.0-17.9); LYMPHOCYTES # (AUTO) 1.3 X10'3 (1.1-4.8); LYMPHOCYTES % (AUTO) 11.4 % (21-51); MEAN CORPUSCULAR HEMOGLOBIN 26.2 PG (27.0-31.0); MEAN CORPUSCULAR HGB CONC 31.6 g/dL (33.0-36.5); MEAN PLATELET VOLUME 6.8 FL (7.4-10.4); MONOCYTES # (AUTO) 1.5 X10'3 (0-0.9); NEUTROPHILS # (AUTO) 8.2 X10'3 (1.8-7.7); NEUTROPHILS % (AUTO) 72.6 % (42-75); PLATELET COUNT 287 X10'3 (140-440); RED BLOOD COUNT 2.98 X10'6 (4.70-6.10); RED CELL DISTRIBUTION WIDTH 18.8 % (11.5-14.5); WHITE BLOOD COUNT 11.3 X10'3 (4.5-11.0)
[2021-12-14 07:50] LABS: ALBUMIN 3.1 G/DL (3.4-5.0); ANION GAP 8 (8-16); BLOOD UREA NITROGEN 7 MG/DL (7-18); CALCIUM 8.8 MG/DL (8.5-10.1); CHLORIDE 109 MMOL/L (99-107); CREATININE 0.78 MG/DL (0.60-1.10); GLUCOSE 140 MG/DL (70-104); POTASSIUM 4.1 MMOL/L (3.5-5.1); SODIUM 141 MMOL/L (135-145); TOTAL CARBON DIOXIDE 23.6 MMOL/L (24-32); eGFR > 90 ML/MIN
[2021-12-14] MEDS: cholecalciferol (vitamin D3) 1,000 unit (25mcg) tablet PO SCH (07:55)
[2021-12-14] MEDS: gabapentin 300mg capsule PO SCH ×3 (07:56→21:00)
[2021-12-14] MEDS: tamsulosin 0.4mg capsule PO SCH (07:56)
[2021-12-14] MEDS: docusate sod 100mg capsule PO SCH ×3 (07:56→22:21)
[2021-12-14] MEDS: thiamine 100mg tablet PO SCH (07:57)
[2021-12-14] MEDS: furosemide 20MG tablet PO SCH (07:57)
[2021-12-14] MEDS: lactobacillus rhamnosus 10,000 MMU CELLS/CAPSULE PO SCH (07:58)
[2021-12-14] MEDS: amLODIPine 5mg tablet PO SCH ×2 (07:58→22:28)
--- NOTE | 2021-12-14 08:09 | NUR ---
Meds Protonix not up from pharmacy; pharmacy paged and made aware. Holding plavix until dr. Warren rounds due to GI bleed diagnosis. [facility]
[2021-12-14] MEDS ORDERED: fentaNYL/PF 50MCG/1 ML 2ML syringe ONE (09:54)
[2021-12-14] MEDS ORDERED: LIDOcaine Viscous 15ml cup ONE (09:55)
[2021-12-14] MEDS ORDERED: MIDAZolam 1 MG/ML 5ML VIAL ONE (09:55)
[2021-12-14] MEDS: MESSAGE TO NURSING PO NR (10:00)
[2021-12-14] MEDS: pantoprazole 40MG/NS 100ML BAG 100 ML IV SCH (11:44)
[2021-12-14] MEDS: clopidogrel 75mg tablet PO SCH (11:44)
--- NOTE | 2021-12-14 11:45 | NUR ---
per Dr. Briana fairchild to give plavix; Plavis would not scan, but was received; Ariela [facility]
--- NOTE | 2021-12-14 12:30 | NUR ---
MD orders Verbal order from Dr. Warren to change IV protonix to PO protonix 40mg daily [facility]
--- NOTE | 2021-12-14 12:45 | NUR ---
Verbal order Verbal order from Dr. Warren to start patient on eliquis tonight and schedule 5mg BID. Ariela [facility]
--- NOTE | 2021-12-14 18:19 | NUR ---
Problems reprioritized. Patient report given, questions answered & plan of care reviewed with Ny CHANG.
[2021-12-14] MEDS: insulin glargine (Lantus) pen - multi-dose SQ SCH (21:00)
[2021-12-14] MEDS: apixaban 5mg tablet PO SCH (22:22)
[2021-12-15 02:00] VITALS: BP 140/65
[2021-12-15 06:00] VITALS: BP 129/64
[2021-12-15 07:06] LABS: BASOPHILS # (AUTO) 0.1 X10'3 (0-0.2); EOSINOPHILS # (AUTO) 0.2 X10'3 (0-0.9); EOSINOPHILS % (AUTO) 1.9 % (0-6); HEMOGLOBIN 8.7 g/dl (14.0-17.9); LYMPHOCYTES # (AUTO) 1.1 X10'3 (1.1-4.8); LYMPHOCYTES % (AUTO) 10.7 % (21-51); MEAN CORPUSCULAR HEMOGLOBIN 26.8 PG (27.0-31.0); MEAN CORPUSCULAR VOLUME 83.6 FL (78-98); MEAN PLATELET VOLUME 6.8 FL (7.4-10.4); MONOCYTES # (AUTO) 1.7 X10'3 (0-0.9); MONOCYTES % (AUTO) 15.7 % (2-12); NEUTROPHILS # (AUTO) 7.4 X10'3 (1.8-7.7); NEUTROPHILS % (AUTO) 70.7 % (42-75); PLATELET COUNT 258 X10'3 (140-440); RED BLOOD COUNT 3.24 X10'6 (4.70-6.10); RED CELL DISTRIBUTION WIDTH 18.9 % (11.5-14.5); WHITE BLOOD COUNT 10.5 X10'3 (4.5-11.0)
[2021-12-15 07:17] LABS: ALBUMIN 3.1 G/DL (3.4-5.0); ANION GAP 8 (8-16); BLOOD UREA NITROGEN 9 MG/DL (7-18); BUN/CREATININE RATIO 10.8 (5.4-32.0); CALCIUM 8.6 MG/DL (8.5-10.1); CHLORIDE 109 MMOL/L (99-107); CREATININE 0.83 MG/DL (0.60-1.10); GLUCOSE 134 MG/DL (70-104); POTASSIUM 3.6 MMOL/L (3.5-5.1); SODIUM 140 MMOL/L (135-145); TOTAL CARBON DIOXIDE 22.7 MMOL/L (24-32); eGFR > 90 ML/MIN
[2021-12-15] MEDS ORDERED: pantoprazole 40mg Tablet.DR PO SCH (07:30)
[2021-12-15] MEDS: sucralfate 1 gm tablet PO SCH ×2 (07:42→13:12)
[2021-12-15] MEDS: cholecalciferol (vitamin D3) 1,000 unit (25mcg) tablet PO SCH (07:42)
[2021-12-15] MEDS: docusate sod 100mg capsule PO SCH (07:42)
[2021-12-15] MEDS: amLODIPine 5mg tablet PO SCH (07:43)
[2021-12-15] MEDS: apixaban 5mg tablet PO SCH (07:44)
[2021-12-15] MEDS: furosemide 20MG tablet PO SCH (07:44)
[2021-12-15] MEDS: gabapentin 300mg capsule PO SCH ×2 (07:44→13:12)
[2021-12-15] MEDS: clopidogrel 75mg tablet PO SCH (07:44)
[2021-12-15] MEDS: tamsulosin 0.4mg capsule PO SCH (07:44)
[2021-12-15] MEDS: thiamine 100mg tablet PO SCH (07:45)
[2021-12-15] MEDS: lactobacillus rhamnosus 10,000 MMU CELLS/CAPSULE PO SCH (07:45)
[2021-12-15 08:00] VITALS: BP_SYST 117; BP_SYST 125; BP_SYST 128; BP_DIAS 60; BP_DIAS 62; BP_DIAS 70
[2021-12-15] MEDS ORDERED: APIX5TAB3 PO (09:47)
[2021-12-15] MEDS ORDERED: PANT40TA54 PO (09:47)
[2021-12-15] MEDS: MESSAGE TO NURSING PO NR (10:00)
[2021-12-15 11:00] VITALS: BP 119/64
[2021-12-15 15:12] LABS: PLATELET ESTIMATE NORMAL; TOTAL CELLS COUNTED 100
--- NOTE | 2021-12-15 15:53 | NUR ---
Pt. received discharge instructions with no further questions; Pt. IV removed with catheter intact; Tele box cleaned and returned; Pt. left with in private vehicle; pt. stable for discharge per Dr. Warren.[facility]
== END 2021-12-15 15:53 | disposition home or self-care (01) | DRG 368 ==
LOC: ER 09:42 → ED HOLD 11:57 → EDBEDREQ 19:52 → EDBEDREQTM 19:52 → PCU 3S 20:50
PROVIDERS: ADMIT Internal Medicine; ATTEND Internal Medicine
PROC: 30233N1 Transfusion of Nonautologous Red Blood Cells into Peripheral Vein, Percutaneous Approach (ICD-10-PCS; 2021-12-13)
PROC: B32T1ZZ Computerized Tomography (CT Scan) of Left Pulmonary Artery using Low Osmolar Contrast (ICD-10-PCS; 2021-12-13)
PROC: B3201ZZ Computerized Tomography (CT Scan) of Thoracic Aorta using Low Osmolar Contrast (ICD-10-PCS; 2021-12-13)
PROC: B32S1ZZ Computerized Tomography (CT Scan) of Right Pulmonary Artery using Low Osmolar Contrast (ICD-10-PCS; 2021-12-13)
PROC: 0DB48ZX Excision of Esophagogastric Junction, Via Natural or Artificial Opening Endoscopic, Diagnostic (ICD-10-PCS; principal; 2021-12-14)
DX: K21.01 Gastro-esophageal reflux disease with esophagitis, with bleeding (principal); K29.71 Gastritis, unspecified, with bleeding; D62 Acute posthemorrhagic anemia; J44.9 Chronic obstructive pulmonary disease, unspecified; I48.0 Paroxysmal atrial fibrillation; N40.0 Benign prostatic hyperplasia without lower urinary tract symptoms; F17.210 Nicotine dependence, cigarettes, uncomplicated; I25.10 Atherosclerotic heart disease of native coronary artery without angina pectoris; I50.9 Heart failure, unspecified; T50.905A Adverse effect of unspecified drugs, medicaments and biological substances, initial encounter; F41.9 Anxiety disorder, unspecified; D50.9 Iron deficiency anemia, unspecified; E11.22 Type 2 diabetes mellitus with diabetic chronic kidney disease; N18.30 Chronic kidney disease, stage 3 unspecified; Z79.01 Long term (current) use of anticoagulants; Z79.02 Long term (current) use of antithrombotics/antiplatelets; Z79.899 Other long term (current) drug therapy; Z80.9 Family history of malignant neoplasm, unspecified; Z85.118 Personal history of other malignant neoplasm of bronchus and lung; Z86.711 Personal history of pulmonary embolism; Z79.84 Long term (current) use of oral hypoglycemic drugs; Z86.16 Personal history of COVID-19; Z88.0 Allergy status to penicillin; Y92.89 Other specified places as the place of occurrence of the external cause
CPT/HCPCS: 36415; 36430; 43239; 71045; 71275; 80048; 80053; 82272; 82948; 83735; 83880; 84484; 85007; 85008; 85025; 85027; 85379; 85610; 86885; 86900; 86901; 86920; 87081; 88305; 94640; 94760; 99152; 99285; A4620; C9113; G0378; J1815; J2250; J3010; J7040; P9016; Q0177; Q9967

== ENCOUNTER 2022-01-17 13:06 | Emergency (ER) | payer MEDICARE, MEDICAID ==
[~2022-01-17] VITALS: Ht 172.7 cm; Wt 82.3 kg
[~2022-01-17 13:06] MED LIST changes: -ASPI81TA50 PO; -HYDR-3972 PO; -IPRA3AMP31 IH; +PANT40TA54 PO
[2022-01-17 14:31] LABS: BASOPHILS # (AUTO) 0.2 X10'3 (0-0.2); BASOPHILS % (AUTO) 1.8 % (0-1); EOSINOPHILS # (AUTO) 0.3 X10'3 (0-0.9); EOSINOPHILS % (AUTO) 2.7 % (0-6); HEMATOCRIT 33.7 % (42.0-52.0); HEMOGLOBIN 10.9 g/dl (14.0-17.9); LYMPHOCYTES # (AUTO) 1.4 X10'3 (1.1-4.8); LYMPHOCYTES % (AUTO) 14.7 % (21-51); MEAN CORPUSCULAR HEMOGLOBIN 26.7 PG (27.0-31.0); MEAN CORPUSCULAR HGB CONC 32.5 g/dL (33.0-36.5); MEAN CORPUSCULAR VOLUME 82.2 FL (78-98); MEAN PLATELET VOLUME 6.8 FL (7.4-10.4); MONOCYTES # (AUTO) 1.2 X10'3 (0-0.9); MONOCYTES % (AUTO) 12.6 % (2-12); NEUTROPHILS # (AUTO) 6.7 X10'3 (1.8-7.7); NEUTROPHILS % (AUTO) 68.2 % (42-75); PLATELET COUNT 237 X10'3 (140-440); RED CELL DISTRIBUTION WIDTH 22.6 % (11.5-14.5); WHITE BLOOD COUNT 9.8 X10'3 (4.5-11.0)
[2022-01-17 14:47] LABS: ALANINE AMINOTRANSFERASE 10 U/L (12-78); ALBUMIN 3.3 G/DL (3.4-5.0); ALBUMIN/GLOBULIN RATIO 0.8 (1.1-1.5); ALKALINE PHOSPHATASE 85 IU/L (46-116); ANION GAP 10 (8-16); ASPARTATE AMINO TRANSFERASE 12 U/L (10-37); BILIRUBIN,TOTAL 0.4 MG/DL (0.1-1.0); BLOOD UREA NITROGEN 6 MG/DL (7-18); BUN/CREATININE RATIO 6.8 (5.4-32.0); CALCIUM 9.4 MG/DL (8.5-10.1); CHLORIDE 108 MMOL/L (99-107); CREATININE 0.88 MG/DL (0.60-1.10); GLUCOSE 96 MG/DL (70-104); POTASSIUM 3.9 MMOL/L (3.5-5.1); SODIUM 143 MMOL/L (135-145); TOTAL CARBON DIOXIDE 25.1 MMOL/L (24-32); TOTAL PROTEIN 7.5 G/DL (6.4-8.2); eGFR 85 ML/MIN
[2022-01-17 15:03] LABS: ANISOCYTOSIS 3+; MICROCYTOSIS 1+; PLATELET ESTIMATE NORMAL; POIKILOCYTOSIS FEW; TARGET CELLS FEW
[2022-01-17] MEDS ORDERED: CEPH250T PO (15:21)
[2022-01-17 15:22] VITALS: BP 140/74
== END 2022-01-17 15:39 | disposition home or self-care (01) ==
LOC: ER 13:06
DX: I87.8 Other specified disorders of veins (principal); L03.115 Cellulitis of right lower limb; M79.661 Pain in right lower leg; I25.10 Atherosclerotic heart disease of native coronary artery without angina pectoris; I50.9 Heart failure, unspecified; J44.9 Chronic obstructive pulmonary disease, unspecified; E11.9 Type 2 diabetes mellitus without complications; F32.A Depression, unspecified; F17.200 Nicotine dependence, unspecified, uncomplicated; Z86.711 Personal history of pulmonary embolism; Z86.718 Personal history of other venous thrombosis and embolism; Z86.19 Personal history of other infectious and parasitic diseases; Z85.118 Personal history of other malignant neoplasm of bronchus and lung; Z98.890 Other specified postprocedural states; Z88.0 Allergy status to penicillin; Z88.8 Allergy status to other drugs, medicaments and biological substances; Z79.2 Long term (current) use of antibiotics; Z79.899 Other long term (current) drug therapy
CPT/HCPCS: 36415; 71045; 80053; 85008; 85025; 85610; 86885; 86900; 86901; 93005; 93970; 99285

== ENCOUNTER 2023-04-19 15:02 | Emergency (ER) | payer MEDICARE, MEDICAID ==
[~2023-04-19] VITALS: Ht 170.2 cm; Wt 72.7 kg
[2023-04-19 15:18] VITALS: TEMP 97.8
[2023-04-19 15:26] LABS: BASOPHILS # (AUTO) 0.1 X10'3 (0-0.2); BASOPHILS % (AUTO) 1.6 % (0-1); EOSINOPHILS # (AUTO) 0.4 X10'3 (0-0.9); EOSINOPHILS % (AUTO) 4.9 % (0-6); HEMATOCRIT 26.5 % (42.0-52.0); HEMOGLOBIN 8.5 g/dl (14.0-17.9); LYMPHOCYTES # (AUTO) 1.8 X10'3 (1.1-4.8); LYMPHOCYTES % (AUTO) 20.7 % (21-51); MEAN CORPUSCULAR HEMOGLOBIN 23.8 PG (27.0-31.0); MEAN CORPUSCULAR VOLUME 74.4 FL (78-98); MEAN PLATELET VOLUME 7.2 FL (7.4-10.4); MONOCYTES # (AUTO) 1.1 X10'3 (0-0.9); MONOCYTES % (AUTO) 12.8 % (2-12); NEUTROPHILS # (AUTO) 5.1 X10'3 (1.8-7.7); PLATELET COUNT 206 X10'3 (140-440); RED BLOOD COUNT 3.56 X10'6 (4.70-6.10); RED CELL DISTRIBUTION WIDTH 25.9 % (11.5-14.5); WHITE BLOOD COUNT 8.5 X10'3 (4.5-11.0)
[2023-04-19 15:43] LABS: ALANINE AMINOTRANSFERASE 16 U/L (12-78); ALBUMIN 3.3 G/DL (3.4-5.0); ALBUMIN/GLOBULIN RATIO 0.9 (1.1-1.5); ALKALINE PHOSPHATASE 71 IU/L (46-116); ANION GAP 9 (8-16); ASPARTATE AMINO TRANSFERASE 14 U/L (10-37); BILIRUBIN,TOTAL 0.4 MG/DL (0.1-1.0); BLOOD UREA NITROGEN 5 MG/DL (7-18); BUN/CREATININE RATIO 5.3 (10.0-20.0); CALCIUM 9.1 MG/DL (8.5-10.1); CHLORIDE 105 MMOL/L (99-107); CREATININE 0.95 MG/DL (0.60-1.10); GLUCOSE 113 MG/DL (70-104); POTASSIUM 3.9 MMOL/L (3.5-5.1); SODIUM 137 MMOL/L (135-145); TOTAL CARBON DIOXIDE 23.4 MMOL/L (24-32); TOTAL PROTEIN 7.1 G/DL (6.4-8.2); eCRCL 65 ML/MIN; eGFR 77 ML/MIN
[2023-04-19 15:50] LABS: PRO BRAIN NATRIURETIC PEPTIDE 1625 PG/ML (0-450)
[2023-04-19 17:26] VITALS: BP 177/84; PULSE 76; RESP 18; O2SAT 98
[2023-04-19 17:35] LABS: ANISOCYTOSIS 3+; HYPOCHROMASIA 2+; MICROCYTOSIS 1+; PLATELET ESTIMATE NORMAL
[2023-04-19 17:36] LABS: ELLIPTOCYTES FEW; SCHISTOCYTES FEW
[2023-04-19] MEDS ORDERED: FURO-150 PO (18:49)
[2023-04-19] MEDS ORDERED: POTA-206 PO (18:49)
[2023-04-19] MEDS ORDERED: TRAM50TA2 PO (18:49)
[2023-04-19] MEDS ORDERED: furosemide 20MG tablet PO ONE (18:50)
[2023-04-19] MEDS ORDERED: traMADol 50MG tablet PO ONE (18:50)
== END 2023-04-19 19:08 | disposition left against medical advice (07) ==
LOC: ER 15:04
DX: R60.9 Edema, unspecified (principal); S09.90XA Unspecified injury of head, initial encounter; M79.604 Pain in right leg; M79.605 Pain in left leg; I50.9 Heart failure, unspecified; J44.9 Chronic obstructive pulmonary disease, unspecified; R51.9 Headache, unspecified; E11.9 Type 2 diabetes mellitus without complications; Z88.0 Allergy status to penicillin; Z88.8 Allergy status to other drugs, medicaments and biological substances; Z79.899 Other long term (current) drug therapy
CPT/HCPCS: 36415; 70450; 71045; 80053; 83880; 84484; 85008; 85025; 93005; 93971; 99285

== ENCOUNTER 2023-11-15 14:54 | Emergency (ER) | payer MEDICARE, MEDICAID ==
[~2023-11-15] VITALS: Ht 167.6 cm; Wt 70.3 kg
[~2023-11-15 14:54] MED LIST changes: +POTA-206 PO
[2023-11-15 15:16] LABS: BASOPHILS # (AUTO) 0.1 X10'3 (0-0.2); EOSINOPHILS # (AUTO) 0.1 X10'3 (0-0.9); HEMATOCRIT 38.7 % (42.0-52.0); HEMOGLOBIN 12.8 g/dl (14.0-17.9); LYMPHOCYTES # (AUTO) 1.7 X10'3 (1.1-4.8); MEAN CORPUSCULAR HEMOGLOBIN 28.9 PG (27.0-31.0); MEAN CORPUSCULAR HGB CONC 33.1 g/dL (33.0-36.5); MEAN CORPUSCULAR VOLUME 87.3 FL (78-98); MEAN PLATELET VOLUME 7.4 FL (7.4-10.4); MONOCYTES # (AUTO) 0.8 X10'3 (0-0.9); NEUTROPHILS # (AUTO) 5.5 X10'3 (1.8-7.7); PLATELET COUNT 222 X10'3 (140-440); RED BLOOD COUNT 4.43 X10'6 (4.70-6.10); RED CELL DISTRIBUTION WIDTH 20.9 % (11.5-14.5); WHITE BLOOD COUNT 8.3 X10'3 (4.5-11.0)
[2023-11-15 15:30] LABS: ALANINE AMINOTRANSFERASE 14 U/L (12-78); ALBUMIN 3.5 G/DL (3.4-5.0); ALBUMIN/GLOBULIN RATIO 0.8 (1.1-1.5); ALKALINE PHOSPHATASE 110 IU/L (46-116); ANION GAP 8 (8-16); ASPARTATE AMINO TRANSFERASE 15 U/L (10-37); BILIRUBIN,TOTAL 0.3 MG/DL (0.1-1.0); BLOOD UREA NITROGEN 11 MG/DL (7-18); CALCIUM 8.4 MG/DL (8.5-10.1); CHLORIDE 104 MMOL/L (99-107); CREATININE 1.38 MG/DL (0.60-1.10); GLUCOSE 174 MG/DL (70-104); SODIUM 141 MMOL/L (135-145); TOTAL CARBON DIOXIDE 29.1 MMOL/L (24-32); TOTAL PROTEIN 7.7 G/DL (6.4-8.2); eCRCL 42 ML/MIN; eGFR 50 ML/MIN
[2023-11-15 15:37] LABS: PRO BRAIN NATRIURETIC PEPTIDE 4125 PG/ML (0-450)
[2023-11-15 15:39] LABS: ANISOCYTOSIS 3+; PLATELET ESTIMATE NORMAL
[2023-11-15 15:40] LABS: HYPOCHROMASIA 2+
[2023-11-15 15:41] LABS: ELLIPTOCYTES FEW; SCHISTOCYTES FEW
[2023-11-15 18:52] VITALS: BP 127/97; PULSE 58; RESP 16; TEMP 98; O2SAT 99
== END 2023-11-15 18:54 | disposition home or self-care (01) ==
LOC: ER 14:55
DX: R06.02 Shortness of breath (principal); I50.9 Heart failure, unspecified; J44.9 Chronic obstructive pulmonary disease, unspecified; E11.9 Type 2 diabetes mellitus without complications; Z88.0 Allergy status to penicillin; Z79.899 Other long term (current) drug therapy
CPT/HCPCS: 36415; 71045; 80053; 83880; 84484; 85008; 85025; 93005; 99285

== ENCOUNTER 2024-02-22 11:44 | Day surgery (SDC) | payer MEDICARE, MEDICAID ==
[2024-02-22] VITALS (11 sets, daily range): BP systolic 87–141; BP diastolic 44–85; PULSE 70–83; RESP 16; O2SAT 94–100
[~2024-02-22] VITALS: Ht 162.6 cm; Wt 73.0 kg
[2024-02-22] MEDS ORDERED: normal saline 1,000 ML IV SCH (12:25)
[2024-02-22] MEDS ORDERED: diphenhydrAMINE 25mg capsule PO PRN (12:25)
[2024-02-22] MEDS ORDERED: FURO20TA4 PO (12:33)
[2024-02-22] MEDS ORDERED: ASPI-1264 PO (12:34)
[2024-02-22] MEDS ORDERED: QUET25TA36 PO (12:34)
[2024-02-22] MEDS ORDERED: PIOG45TA5 PO (12:36)
[2024-02-22] MEDS ORDERED: ROSU40TA22 PO (12:37)
[2024-02-22] MEDS ORDERED: CARB100T50 PO (12:37)
[2024-02-22] MEDS ORDERED: OXYC5TAB2 PO (12:39)
[2024-02-22] MEDS ORDERED: LOSA25TA41 PO (12:39)
[2024-02-22] MEDS ORDERED: EMPA10TA PO (12:39)
[2024-02-22] MEDS ORDERED: DESV100T16 PO (12:40)
[2024-02-22] MEDS ORDERED: METO-395 PO (12:40)
[2024-02-22] MEDS ORDERED: LAMO25TA5 PO (12:40)
[2024-02-22 12:41] LABS: BASOPHILS # (AUTO) 0.1 X10'3 (0-0.2); BASOPHILS % (AUTO) 0.8 % (0-1); EOSINOPHILS # (AUTO) 0.2 X10'3 (0-0.9); EOSINOPHILS % (AUTO) 2.7 % (0-6); HEMATOCRIT 25.2 % (42.0-52.0); LYMPHOCYTES # (AUTO) 1.2 X10'3 (1.1-4.8); LYMPHOCYTES % (AUTO) 13.7 % (21-51); MEAN CORPUSCULAR HEMOGLOBIN 25.9 PG (27.0-31.0); MEAN CORPUSCULAR HGB CONC 31.8 g/dL (33.0-36.5); MEAN CORPUSCULAR VOLUME 81.4 FL (78-98); MEAN PLATELET VOLUME 7.5 FL (7.4-10.4); MONOCYTES # (AUTO) 1.1 X10'3 (0-0.9); MONOCYTES % (AUTO) 12.1 % (2-12); NEUTROPHILS # (AUTO) 6.5 X10'3 (1.8-7.7); NEUTROPHILS % (AUTO) 70.7 % (42-75); PLATELET COUNT 246 X10'3 (140-440); WHITE BLOOD COUNT 9.2 X10'3 (4.5-11.0)
[2024-02-22] MEDS ORDERED: midazolam 1 mg/ML 2ml injection ONE (12:44)
[2024-02-22] MEDS ORDERED: iohexol 350MG/ML 100ml bottle IV ONE ×3 (12:44→14:07)
[2024-02-22] MEDS ORDERED: verapamil 2.5 mg/ml inj IV ONE (12:44)
[2024-02-22] MEDS ORDERED: nitroGLYCERIN 500mcg/5mL D5W 5 ML IV ONE ×4 (12:44→14:38)
[2024-02-22] MEDS ORDERED: iohexol 350 MG/ML 50ML vial IV ONE ×2 (12:44→14:07)
[2024-02-22] MEDS ORDERED: fentaNYL/PF 50MCG/1 ML 2ML syringe ONE (12:44)
[2024-02-22] MEDS ORDERED: LIDOcaine 1% (10mg/ml) 2ml vial ONE ×2 (12:44→12:54)
[2024-02-22] MEDS ORDERED: heparin 1,000unit/ml 10ml vial 10 ML ONE (12:45)
[2024-02-22] MEDS ORDERED: POTA-206 PO (12:45)
[2024-02-22] MEDS ORDERED: SPIR25TA5 PO (12:45)
[2024-02-22 12:49] LABS: ALBUMIN 3.2 G/DL (3.4-5.0); ANION GAP 9 (8-16); BLOOD UREA NITROGEN 15 MG/DL (7-18); BUN/CREATININE RATIO 9.4 (10.0-20.0); CALCIUM 8.9 MG/DL (8.5-10.1); CHLORIDE 108 MMOL/L (99-107); CREATININE 1.59 MG/DL (0.60-1.10); GLUCOSE 101 MG/DL (70-104); POTASSIUM 4.2 MMOL/L (3.5-5.1); SODIUM 143 MMOL/L (135-145); TOTAL CARBON DIOXIDE 25.8 MMOL/L (24-32); eCRCL 34 ML/MIN; eGFR 43 ML/MIN
[2024-02-22 12:54] LABS: APTT 26 SECONDS (22-32); INR 1.1 INR; PROTHROMBIN TIME 11.4 SECONDS (9.0-12.0)
[2024-02-22] MEDS ORDERED: heparin 25,000 UNIT/250ml bag 250 ML IV ONE (13:48)
[2024-02-22 13:55] LABS: ISTAT HGB ART 8.2 g/dl (14.0-17.9); ISTAT Hct ART 24 %PCV (42-52); ISTAT O2 SATURATION ARTERIAL 95 % (95-98); ISTAT SOURCE ART
[2024-02-22] MEDS ORDERED: atropine 0.1mg/ml 10ml syringe ONE (14:07)
[2024-02-22] MEDS ORDERED: epiNEPHrine 0.1mg/ml 10ml syringe ONE (14:07)
[2024-02-22 14:37] LABS: ISTAT HGB MIX 7.8 g/dl (14.0-17.9); ISTAT Hct MIX 23 %PCV (42-52); ISTAT O2 SATURATION MIX VENOUS 58 % (60-80); ISTAT SOURCE VEN
[2024-02-22] MEDS ORDERED: clopidogrel 300mg tablet ONE (14:57)
[2024-02-22] MEDS ORDERED: aspirin 325mg tablet ONE (15:02)
[2024-02-22] MEDS: ACETYLCYSTEINE 200 MG/1 ML 4 ML ORAL SOLUTION PO SCH (16:26)
[2024-02-22] MEDS: SODIUM BICARBONATE 150MEQ IN D5W 1,000 ML IV SCH (16:28)
== END 2024-02-22 20:10 | disposition home or self-care (01) ==
LOC: SSTAY O 11:44
PROVIDERS: ATTEND Internal Medicine Cardiovascular Disease
DX: R94.39 Abnormal result of other cardiovascular function study (principal); I25.10 Atherosclerotic heart disease of native coronary artery without angina pectoris; I11.0 Hypertensive heart disease with heart failure; I50.22 Chronic systolic (congestive) heart failure; E11.9 Type 2 diabetes mellitus without complications; J44.9 Chronic obstructive pulmonary disease, unspecified; E78.5 Hyperlipidemia, unspecified; I25.2 Old myocardial infarction; G47.39 Other sleep apnea; F17.210 Nicotine dependence, cigarettes, uncomplicated; Z79.899 Other long term (current) drug therapy; Z90.49 Acquired absence of other specified parts of digestive tract; Z98.890 Other specified postprocedural states; Z88.0 Allergy status to penicillin; Z88.8 Allergy status to other drugs, medicaments and biological substances; Z80.9 Family history of malignant neoplasm, unspecified
CPT/HCPCS: 36415; 76937; 80048; 82803; 85014; 85025; 85347; 85610; 85730; 92921; 93005; 93460; 99152; 99153; A6258; A6402; C1725; C1751; C1769; C1874; C1894; C9600; J1644; J2001; J2250; J3010; J3490; J7030; J7070; Q9967; Z7610; 93458; J0171; J0461

== ENCOUNTER 2024-05-05 13:53 | Outpatient (CLI) | payer MEDICARE, MEDICAID ==
[~2024-05-05 13:53] MED LIST changes: -ALBU8.5H17 IH; -AMLO-317 PO; -APIX5TAB3 PO; +ASPI-1264 PO; +CARB100T60 PO; -CHOL500050 PO; -CLOP75TA34 PO; +DESV100T16 PO; +EMPA10TA PO; -FURO-150 PO; +FURO20TA4 PO; -HYDR-3686 PO; -LACT1CAP65 PO; +LAMO25TA5 PO; +LOSA25TA41 PO; -METF-436 PO; +METO-395 PO; +OXYC5TAB2 PO; -PANT40TA54 PO; +PIOG45TA5 PO; +QUET25TA36 PO; +ROSU40TA71 PO; +SPIR25TA5 PO; -SUCR1TAB PO; -THIA100T70 PO; -VILA40TA PO
== END 2024-05-05 23:59 | disposition home or self-care (01) ==
LOC: RAD 13:53
PROVIDERS: ATTEND Family Medicine
DX: R13.10 Dysphagia, unspecified (principal)
CPT/HCPCS: 74230